=== PATIENT | female | born 1965 | race Caucasian/White ===

== ENCOUNTER → 2017-07-18 | Outpatient (CLI) | payer OTHER ==
[~2017-07-18] MED LIST: ACETAMINOPHEN PO; ALEVE220 MG PO; LORTAB 5 MG/5001 TA1 PO; MOTRIN 600 MG600 M1 OR
== END ==
LOC: RAD 13:50
DX: Z12.31 Encounter for screening mammogram for malignant neoplasm of breast (principal)

== ENCOUNTER → 2019-02-02 | Outpatient (CLI) | payer BC, OTHER | LOC: RAD 13:40 | DX: Z12.31 Encounter for screening mammogram for malignant neoplasm of breast (principal) ==